=== PATIENT | male | born 1945 | race Caucasian/White ===

== ENCOUNTER → 2018-02-11 | Outpatient (CLI) | payer OTHER ==
[~2018-02-11] MED LIST: ALLO300T PO; BISA10SU65 PR; DICL100G19 TP; DIGO250T PO; DILT120C9 PO; DILT180C72 PO; DILT180C9 PO; FERR324T5 PO; FOLI-17 PO; HYDR-3245 PO; LEVO88TA4 PO; LOVA20TA2 PO; METH2.5T PO; METO25TA35 PO; METO50TA82 PO; MORP-52 PO; MORP60TA PO; NAPR-685 PO; NAPR250T6 PO; ONDA4TAB13 PO; OXYC10TA6 PO; OXYC5TAB3 PO; PANT40TA5 PO; PRED5TAB19 PO; SENN1TAB8 PO; SUCR1ORA5 PO; VIAGRA PO; WARF1TAB74 PO-COUM; WARF4TAB65 PO; WARF6TAB47 PO; ZOLP10TA5 PO
== END | disposition home or self-care (01) ==
LOC: CFH 14:38
PROVIDERS: ATTEND Internal Medicine Cardiovascular Disease
DX: I34.0 Nonrheumatic mitral (valve) insufficiency (principal); I37.1 Nonrheumatic pulmonary valve insufficiency; I10 Essential (primary) hypertension; E78.5 Hyperlipidemia, unspecified; I48.2 Chronic atrial fibrillation
CPT/HCPCS: 93306

== ENCOUNTER 2019-05-08 16:48 | Emergency (ER) | payer SELFPAY ==
[~2019-05-08] VITALS: Ht 193 cm; Wt 93.0 kg
[~2019-05-08 16:48] MED LIST changes: +DILT120C48 PO; -DILT120C9 PO; -MORP60TA PO; +MORP60TA63 PO; +SENN-177 PO; -SENN1TAB8 PO
[2019-05-08 17:43] VITALS: BP 124/90
[2019-05-08 18:15] LABS: BASOPHILS # (AUTO) 0.05 x10^3/uL (0-0.1); BASOPHILS % (AUTO) 1 % (0-1); EOSINOPHILS # (AUTO) 0.14 x10^3/uL (0-0.4); EOSINOPHILS % (AUTO) 2 % (1-7); LYMPHOCYTES # (AUTO) 1.52 x10^3/uL (1-3.4); LYMPHOCYTES % (AUTO) 20 % (22-44); MD NO; MEAN CORPUSCULAR HEMOGLOBIN 32.4 pg (27.5-34.5); MEAN CORPUSCULAR HGB CONC 32.4 g/dL (33.2-36.2); MEAN CORPUSCULAR VOLUME 100.2 fL (81-97); MEAN PLATELET VOLUME 6.8 fL (7.4-10.4); MONOCYTES % (AUTO) 16 % (2-9); NEUTROPHILS # (AUTO) 4.55 x10^3/uL (1.8-6.8); NEUTROPHILS % (AUTO) 61 % (42-75); PLATELET COUNT 266 x10^3/uL (130-400); RED BLOOD COUNT 3.63 x10^6/uL (4.38-5.82); RED CELL DISTRIBUTION WIDTH 16.7 % (9.4-14.8)
[2019-05-08 18:23] LABS: ALBUMIN 2.5 g/dL (3.4-5.0); ANION GAP 7 mmol/L (5-15); CHLORIDE 101 mmol/L (98-107)
[2019-05-08 18:28] LABS: ALANINE AMINOTRANSFERASE 12 U/L (12-78); ALKALINE PHOSPHATASE 134 U/L (45-117); BILIRUBIN,TOTAL 0.5 mg/dL (0.2-1.0); CREATININE 1.28 mg/dL (0.7-1.3); TOTAL PROTEIN 7.5 g/dL (6.4-8.2)
--- NOTE | 2019-05-08 20:45 | NUR ---
TASK RN: DC EDUCATION PROVIDED, PT DEMONSTRATES UNDERSTANDING. PT WHEELED TO DC WITH FRIEND/FAMILY
== END 2019-05-08 20:47 | disposition home or self-care (01) ==
LOC: ED 18:00
DX: M79.603 Pain in arm, unspecified (principal); M79.89 Other specified soft tissue disorders; I25.10 Atherosclerotic heart disease of native coronary artery without angina pectoris; I11.0 Hypertensive heart disease with heart failure; I50.9 Heart failure, unspecified; I25.2 Old myocardial infarction; I48.91 Unspecified atrial fibrillation; E78.5 Hyperlipidemia, unspecified; Z87.891 Personal history of nicotine dependence
CPT/HCPCS: 36415; 80053; 85025; 99283

== ENCOUNTER 2020-06-30 08:53 | Inpatient (IN) | payer MEDICARE ==
[~2020-06-30] VITALS: Ht 190.5 cm; Wt 73.8 kg
[~2020-06-30 08:53] MED LIST changes: +ATOR20TA86 PO; -DIGO250T PO; +DIGO250T3 PO; +DILT-86 PO; -DILT180C9 PO; -FOLI-17 PO; +FOLI1TAB32 PO; +FURO40TA6 PO; -HYDR-3245 PO; +HYDR1TAB53 PO; +LEFL20TA16 PO; +LEVO88TA2 PO; +NAPR-872 PO; -NAPR250T6 PO; -OXYC5TAB3 PO; +OXYC5TAB98 PO; +PANT20TA4 PO; -PANT40TA5 PO; +PANT40TA6 PO; +POTA10CA PO; +RIVA20TA PO; +SUCR1TAB PO
--- NOTE | 2020-06-30 09:09 | NUR ---
PT BIB [facility]. PER REPORT, PT HAD SYNCOPAL EVENT AND FELL AND HIT HEAD. PT STAED THAT HE HAD LOC, BUT UNKNOWN DOWN TIME. PT AWAKE, BUT DROWSY. PT STATES HE HAS SOME NECK PAIN. PT STATES THAT HE HAS A HISTORY GIB AND ANEMIA AND HAS BEEN FEELING DIZZY SINCE THEN. PT DENIES ANY BLOODY/BLACK STOOL.
--- NOTE | 2020-06-30 09:23 | NUR ---
PT TO CT
[2020-06-30] MEDS ORDERED: SODIUM CHLORIDE FLUSH 10ML SYR IVF ONE (09:30)
[2020-06-30 09:56] LABS: MEAN CORPUSCULAR HGB CONC 32.7 g/dL (33.2-36.2); MEAN PLATELET VOLUME 7.5 fL (7.4-10.4); PLATELET COUNT 179 x10^3/uL (130-400); RED BLOOD COUNT 2.99 x10^6/uL (4.38-5.82); RED CELL DISTRIBUTION WIDTH 23.1 % (9.4-14.8)
[2020-06-30 10:02] LABS: INTERNATIONAL NORMALIZED RATIO 1.32 (0.93-1.1)
[2020-06-30 10:03] LABS: ALANINE AMINOTRANSFERASE 36 U/L (12-78); ALBUMIN 2.3 g/dL (3.4-5.0); ANION GAP 5 mmol/L (5-15); CALCIUM 8.2 mg/dL (8.5-10.1); CHLORIDE 102 mmol/L (98-107); CREATININE 0.77 mg/dL (0.7-1.3)
[2020-06-30 10:05] LABS: ALKALINE PHOSPHATASE 511 U/L (45-117); BILIRUBIN,TOTAL 2.3 mg/dL (0.2-1.0); TOTAL PROTEIN 6.1 g/dL (6.4-8.2)
[2020-06-30 10:19] LABS: MD YES
[2020-06-30 10:21] LABS: EOS#(MANUAL) 0.08 x10^3/uL (0.0-0.4); EOS% (MANUAL) 1 % (1-7); LYMPH#(MANUAL) 0.83 x10^3/uL (1-3.4); LYMPHS% (MANUAL) 10 % (22-44); MONOS#(MANUAL) 1.33 x10^3/uL (0.3-2.7); MONOS% (MANUAL) 16 % (2-9); SEG#(MANUAL) 6.06 x10^3/uL (1.8-6.8); SEGS% (MANUAL) 73 % (42-75)
[2020-06-30 10:22] LABS: ANISOCYTOSIS 1+; HYPOCHROMIA 1+; OVALOCYTES 1+
[2020-06-30 10:23] LABS: <PLATELET ESTIMATE> ADEQUATE; <PLT MORPHOLOGY> NORMAL PLT MORPH; POLYCHROMASIA 1+; TARGET CELLS 1+; TEAR DROPS 1+
[2020-06-30 10:26] LABS: MICROSCOPIC INDICATED
[2020-06-30] MEDS ORDERED: POTASSIUM CHLORIDE 40 MEQ in SODIUM CHLORIDE 0.9% 500 ML IV ONE (11:00)
--- NOTE | 2020-06-30 11:10 | NUR ---
PACER INTERROGATION COMPLETE
--- NOTE | 2020-06-30 11:26 | NUR ---
REPORT GIVEN TO SANJANA GASTON
[2020-06-30] MEDS ORDERED: DIGOXIN 0.25 MG TABLET PO SCH (11:30)
[2020-06-30] MEDS ORDERED: ONDANSETRON 2MG/ML, 2ML IV PRN (11:30)
[2020-06-30] MEDS ORDERED: POTASSIUM CHLORIDE 20 MEQ TAB.ER.PRT PO ONE (11:30)
[2020-06-30 13:00] VITALS: BP 93/52
[2020-06-30] MEDS: METOPROLOL TARTRATE 50 MG TAB PO SCH ×2 (13:06→18:00)
[2020-06-30] MEDS: LEFLUNOMIDE 20 MG TABLET PO SCH (13:07)
[2020-06-30] MEDS: RIVAROXABAN 20 MG TABLET PO SCH (13:07)
[2020-06-30] MEDS: HYDROcodone/APAP 10/325 MG TABLET PO PRN ×2 (13:09→22:11)
[2020-06-30] MEDS: SUCRALFATE 1 GM TABLET PO SCH ×2 (13:09→18:43)
[2020-06-30 14:24] LABS: ANION GAP 5 mmol/L (5-15); CALCIUM 8.2 mg/dL (8.5-10.1); CHLORIDE 103 mmol/L (98-107); CREATININE 0.71 mg/dL (0.7-1.3)
[2020-06-30] MEDS ORDERED: POTASSIUM CHLORIDE 20 MEQ TAB.ER.PRT ONE (16:27)
[2020-06-30] MEDS: [UNRECOGNIZED DRUG - OTHER] IV SCH (16:30)
[2020-06-30] MEDS: THIAMINE IV SCH (16:30)
[2020-06-30] MEDS: FOLIC ACID IV SCH (16:30)
[2020-06-30] MEDS: MAG SULFATE IV SCH (16:30)
[2020-06-30] MEDS: POTASSIUM CHLORIDE IV SCH (16:30)
[2020-06-30 19:17] VITALS: BP 122/69
[2020-06-30] MEDS: POTASSIUM CHLORIDE 20 MEQ TAB.ER.PRT PO SCH (19:35)
[2020-06-30 19:40] LABS: ANION GAP 3 mmol/L (5-15); CALCIUM 7.8 mg/dL (8.5-10.1); CHLORIDE 107 mmol/L (98-107); CREATININE 0.63 mg/dL (0.7-1.3)
[2020-06-30] MEDS: ATORVASTATIN 20 MG TABLET PO SCH (22:11)
[2020-06-30] MEDS: ALLOPURINOL 300 MG TABLET PO SCH (22:12)
[2020-07-01 00:15] VITALS: BP 129/67
[2020-07-01 02:38] LABS: ANION GAP 2 mmol/L (5-15); CALCIUM 7.8 mg/dL (8.5-10.1); CHLORIDE 109 mmol/L (98-107); CREATININE 0.59 mg/dL (0.7-1.3)
[2020-07-01 05:30] LABS: CHLORIDE 109 mmol/L (98-107); CREATININE 0.57 mg/dL (0.7-1.3)
[2020-07-01] MEDS: LEVOTHYROXINE 88 MCG TABLET PO SCH (05:36)
[2020-07-01] MEDS: METOPROLOL TARTRATE 50 MG TAB PO SCH ×2 (05:36→17:12)
[2020-07-01 05:38] LABS: ANION GAP 2 mmol/L (5-15)
[2020-07-01 06:55] VITALS: BP 128/58
[2020-07-01] MEDS: POTASSIUM CHLORIDE 20 MEQ TAB.ER.PRT PO SCH (07:47)
[2020-07-01] MEDS: ALLOPURINOL 300 MG TABLET PO SCH (07:47)
[2020-07-01] MEDS: SUCRALFATE 1 GM TABLET PO SCH ×2 (07:47→17:12)
[2020-07-01] MEDS: LEFLUNOMIDE 20 MG TABLET PO SCH (07:47)
[2020-07-01] MEDS: RIVAROXABAN 20 MG TABLET PO SCH (07:47)
[2020-07-01] MEDS: FOLIC ACID IV SCH (10:06)
[2020-07-01] MEDS: MAG SULFATE IV SCH (10:06)
[2020-07-01] MEDS: [UNRECOGNIZED DRUG - OTHER] IV SCH (10:06)
[2020-07-01] MEDS: DIGOXIN 0.25 MG TABLET PO SCH (10:06)
[2020-07-01] MEDS: POTASSIUM CHLORIDE IV SCH (10:06)
[2020-07-01] MEDS: THIAMINE IV SCH (10:06)
[2020-07-01] MEDS: HYDROcodone/APAP 10/325 MG TABLET PO PRN ×2 (10:10→17:51)
[2020-07-01 12:10] VITALS: BP 128/53
[2020-07-01 17:40] LABS: TROPONIN I 0.052 ng/mL (0.000-0.045)
[2020-07-01 18:15] VITALS: BP 133/67
[2020-07-01] MEDS: ATORVASTATIN 20 MG TABLET PO SCH (19:58)
[2020-07-02] VITALS: BP 133/62
[2020-07-02 05:44] LABS: BASOPHILS % (AUTO) 1 % (0-1); EOSINOPHILS % (AUTO) 4 % (1-7); LYMPHOCYTES % (AUTO) 17 % (22-44); MEAN CORPUSCULAR HGB CONC 32.6 g/dL (33.2-36.2); MONOCYTES % (AUTO) 17 % (2-9); NEUTROPHILS % (AUTO) 62 % (42-75); PLATELET COUNT 162 x10^3/uL (130-400); RED BLOOD COUNT 2.75 x10^6/uL (4.38-5.82); RED CELL DISTRIBUTION WIDTH 23.8 % (9.4-14.8)
[2020-07-02 05:53] LABS: CHLORIDE 108 mmol/L (98-107)
[2020-07-02] MEDS: LEVOTHYROXINE 88 MCG TABLET PO SCH (05:55)
[2020-07-02] MEDS: METOPROLOL TARTRATE 50 MG TAB PO SCH ×2 (05:55→17:36)
[2020-07-02 06:07] LABS: ALANINE AMINOTRANSFERASE 33 U/L (12-78); ALBUMIN 2.1 g/dL (3.4-5.0); ALKALINE PHOSPHATASE 522 U/L (45-117); ANION GAP 2 mmol/L (5-15); BILIRUBIN,TOTAL 2.2 mg/dL (0.2-1.0); CALCIUM 8.5 mg/dL (8.5-10.1); CREATININE 0.59 mg/dL (0.7-1.3); TOTAL PROTEIN 5.5 g/dL (6.4-8.2)
[2020-07-02 06:15] LABS: MD SCAN
[2020-07-02] MEDS: HYDROcodone/APAP 10/325 MG TABLET PO PRN ×3 (06:31→23:40)
[2020-07-02 06:33] VITALS: BP 144/56
[2020-07-02] MEDS: SUCRALFATE 1 GM TABLET PO SCH ×2 (07:30→15:39)
[2020-07-02 08:19] LABS: TROPONIN I 0.048 ng/mL (0.000-0.045)
[2020-07-02] MEDS ORDERED: REGADENOSON 0.4 MG/5 ML SYRINGE ONE (08:22)
[2020-07-02 14:05] VITALS: BP 145/60
[2020-07-02] MEDS: MULTIVITAMIN 1 TABLET PO SCH (15:39)
[2020-07-02] MEDS: RIVAROXABAN 20 MG TABLET PO SCH (15:39)
[2020-07-02] MEDS: ALLOPURINOL 300 MG TABLET PO SCH (15:39)
[2020-07-02] MEDS: DIGOXIN 0.25 MG TABLET PO SCH (15:39)
[2020-07-02] MEDS: POTASSIUM CHLORIDE 20 MEQ TAB.ER.PRT PO SCH (15:40)
[2020-07-02] MEDS: FOLIC ACID 1 MG TABLET PO SCH (15:41)
[2020-07-02] MEDS: LEFLUNOMIDE 20 MG TABLET PO SCH (15:51)
[2020-07-02 19:09] VITALS: BP 133/60
[2020-07-02] MEDS: ACETAMINOPHEN 325 MG TABLET PO PRN (21:22)
[2020-07-02] MEDS: ATORVASTATIN 20 MG TABLET PO SCH (21:22)
[2020-07-03 00:49] VITALS: BP 128/62
[2020-07-03] MEDS: METOPROLOL TARTRATE 50 MG TAB PO SCH ×2 (05:18→18:00)
[2020-07-03] MEDS: LEVOTHYROXINE 88 MCG TABLET PO SCH (05:18)
[2020-07-03 07:08] VITALS: BP 134/62
[2020-07-03] MEDS: DIGOXIN 0.25 MG TABLET PO SCH (08:01)
[2020-07-03] MEDS: ALLOPURINOL 300 MG TABLET PO SCH (08:01)
[2020-07-03] MEDS: FOLIC ACID 1 MG TABLET PO SCH (08:01)
[2020-07-03] MEDS: POTASSIUM CHLORIDE 20 MEQ TAB.ER.PRT PO SCH (08:02)
[2020-07-03] MEDS: RIVAROXABAN 20 MG TABLET PO SCH (08:02)
[2020-07-03] MEDS: MULTIVITAMIN 1 TABLET PO SCH (08:02)
[2020-07-03] MEDS: HYDROcodone/APAP 10/325 MG TABLET PO PRN ×3 (08:02→20:36)
[2020-07-03] MEDS: SUCRALFATE 1 GM TABLET PO SCH ×2 (08:12→16:19)
[2020-07-03] MEDS: LEFLUNOMIDE 20 MG TABLET PO SCH (08:13)
[2020-07-03 11:03] VITALS: BP 145/70
[2020-07-03 11:04] VITALS: BP_SYST 127; BP_SYST 141; BP_DIAS 64; BP_DIAS 67
[2020-07-03 13:22] VITALS: BP 155/70
[2020-07-03 16:09] LABS: ALANINE AMINOTRANSFERASE 54 U/L (12-78); ALBUMIN 2.2 g/dL (3.4-5.0); ANION GAP 3 mmol/L (5-15); CALCIUM 8.6 mg/dL (8.5-10.1); CHLORIDE 110 mmol/L (98-107); CREATININE 0.65 mg/dL (0.7-1.3)
[2020-07-03 16:11] LABS: ALKALINE PHOSPHATASE 868 U/L (45-117); BILIRUBIN,TOTAL 3.6 mg/dL (0.2-1.0); TOTAL PROTEIN 5.9 g/dL (6.4-8.2)
[2020-07-03 18:48] VITALS: BP 137/73
[2020-07-03] MEDS: ATORVASTATIN 20 MG TABLET PO SCH (20:35)
[2020-07-04 01:30] VITALS: BP 133/69
[2020-07-04] MEDS: LEVOTHYROXINE 75 MCG TABLET PO SCH (05:35)
[2020-07-04] MEDS: METOPROLOL TARTRATE 50 MG TAB PO SCH ×2 (05:36→18:07)
[2020-07-04] MEDS: HYDROcodone/APAP 10/325 MG TABLET PO PRN ×3 (05:36→21:38)
[2020-07-04 06:08] LABS: ALANINE AMINOTRANSFERASE 75 U/L (12-78); ALBUMIN 2.2 g/dL (3.4-5.0); ANION GAP 4 mmol/L (5-15); CALCIUM 8.8 mg/dL (8.5-10.1); CHLORIDE 110 mmol/L (98-107); CREATININE 0.53 mg/dL (0.7-1.3)
[2020-07-04 06:10] LABS: ALKALINE PHOSPHATASE 975 U/L (45-117); BILIRUBIN,TOTAL 3.7 mg/dL (0.2-1.0); TOTAL PROTEIN 5.9 g/dL (6.4-8.2)
[2020-07-04 07:02] VITALS: BP 132/69
[2020-07-04] MEDS: FOLIC ACID 1 MG TABLET PO SCH (09:15)
[2020-07-04] MEDS: RIVAROXABAN 20 MG TABLET PO SCH (09:15)
[2020-07-04] MEDS: MULTIVITAMIN 1 TABLET PO SCH (09:15)
[2020-07-04] MEDS: DIGOXIN 0.25 MG TABLET PO SCH (09:15)
[2020-07-04] MEDS: ALLOPURINOL 300 MG TABLET PO SCH (09:16)
[2020-07-04] MEDS: POTASSIUM CHLORIDE 20 MEQ TAB.ER.PRT PO SCH (09:21)
[2020-07-04] MEDS: LEFLUNOMIDE 20 MG TABLET PO SCH (09:21)
[2020-07-04] MEDS: SUCRALFATE 1 GM TABLET PO SCH ×2 (09:22→16:39)
[2020-07-04] MEDS: PANTOPRAZOLE 40MG TABLET PO SCH (11:47)
[2020-07-04 12:07] VITALS: BP 129/62
[2020-07-04 18:03] VITALS: BP 115/61
[2020-07-04] MEDS: ACETAMINOPHEN 325 MG TABLET PO PRN (18:13)
[2020-07-04 19:13] VITALS: BP 119/64
[2020-07-04] MEDS: ATORVASTATIN 20 MG TABLET PO SCH (21:38)
[2020-07-05 00:38] VITALS: BP 125/69
[2020-07-05 05:10] LABS: BASOPHILS % (AUTO) 1 % (0-1); EOSINOPHILS % (AUTO) 4 % (1-7); LYMPHOCYTES % (AUTO) 20 % (22-44); MEAN CORPUSCULAR HEMOGLOBIN 28.3 pg (27.5-34.5); MEAN PLATELET VOLUME 8.2 fL (7.4-10.4); MONOCYTES % (AUTO) 13 % (2-9); NEUTROPHILS % (AUTO) 62 % (42-75); PLATELET COUNT 173 x10^3/uL (130-400); RED BLOOD COUNT 2.92 x10^6/uL (4.38-5.82); RED CELL DISTRIBUTION WIDTH 24.6 % (9.4-14.8)
[2020-07-05 05:19] LABS: CHLORIDE 110 mmol/L (98-107)
[2020-07-05 05:40] LABS: ALANINE AMINOTRANSFERASE 86 U/L (12-78); ALBUMIN 2.3 g/dL (3.4-5.0); ALKALINE PHOSPHATASE 986 U/L (45-117); ANION GAP 3 mmol/L (5-15); BILIRUBIN,TOTAL 4.3 mg/dL (0.2-1.0); CALCIUM 9.1 mg/dL (8.5-10.1); CREATININE 0.57 mg/dL (0.7-1.3); TOTAL PROTEIN 6.1 g/dL (6.4-8.2)
[2020-07-05 06:07] LABS: <PLATELET ESTIMATE> ADEQUATE; <PLT MORPHOLOGY> NORMAL PLT MORPH; ANISOCYTOSIS 1+; MD MORPH REVIEW ONLY; OVALOCYTES 1+; POLYCHROMASIA 1+
[2020-07-05 06:08] LABS: ECHINOCYTES 1+; MICROCYTOSIS 1+
[2020-07-05 06:09] LABS: ACANTHOCYTES 1+; SCHISTOCYTES 1+
[2020-07-05 06:10] LABS: TARGET CELLS 1+
[2020-07-05 06:11] LABS: HYPOCHROMIA 2+
[2020-07-05] MEDS: PANTOPRAZOLE 40MG TABLET PO SCH (06:14)
[2020-07-05] MEDS: METOPROLOL TARTRATE 50 MG TAB PO SCH ×2 (06:14→17:45)
[2020-07-05] MEDS: LEVOTHYROXINE 75 MCG TABLET PO SCH (06:14)
[2020-07-05 06:15] LABS: TEAR DROPS 1+
[2020-07-05 07:31] VITALS: BP 115/66
[2020-07-05] MEDS: ALLOPURINOL 300 MG TABLET PO SCH (09:59)
[2020-07-05] MEDS: DIGOXIN 0.25 MG TABLET PO SCH (09:59)
[2020-07-05] MEDS: HYDROcodone/APAP 10/325 MG TABLET PO PRN ×2 (10:00→16:15)
[2020-07-05] MEDS: MULTIVITAMIN 1 TABLET PO SCH (10:00)
[2020-07-05] MEDS: LEFLUNOMIDE 20 MG TABLET PO SCH (10:00)
[2020-07-05] MEDS: FOLIC ACID 1 MG TABLET PO SCH (10:00)
[2020-07-05] MEDS: POTASSIUM CHLORIDE 20 MEQ TAB.ER.PRT PO SCH (10:00)
[2020-07-05] MEDS: SUCRALFATE 1 GM TABLET PO SCH ×2 (10:02→16:15)
[2020-07-05 12:08] VITALS: BP 104/55
[2020-07-05 17:43] VITALS: BP 129/58
[2020-07-05] MEDS: CEFTRIAXONE PMX 2GM/50ML 50 ML IVPB SCH (17:43)
[2020-07-05] MEDS: METRONIDAZOLE PMX 500MG/100ML 100 ML IV SCH (18:27)
[2020-07-05 19:20] VITALS: BP 124/60
[2020-07-05] MEDS: OXYcodone IR 5MG TABLET PO PRN (21:10)
[2020-07-05] MEDS: ATORVASTATIN 20 MG TABLET PO SCH (21:10)
[2020-07-06] MEDS: OXYcodone IR 5MG TABLET PO PRN ×6 (00:53→21:50)
[2020-07-06] MEDS: METRONIDAZOLE PMX 500MG/100ML 100 ML IV SCH ×3 (00:54→16:35)
[2020-07-06 01:11] VITALS: BP 131/68
[2020-07-06] MEDS: PANTOPRAZOLE 40MG TABLET PO SCH (05:13)
[2020-07-06] MEDS: LEVOTHYROXINE 75 MCG TABLET PO SCH (05:13)
[2020-07-06] MEDS: METOPROLOL TARTRATE 50 MG TAB PO SCH ×2 (05:13→17:56)
[2020-07-06 06:34] VITALS: BP 125/69
[2020-07-06 08:51] LABS: ALANINE AMINOTRANSFERASE 86 U/L (12-78); ALBUMIN 2.1 g/dL (3.4-5.0); ANION GAP 3 mmol/L (5-15); CHLORIDE 110 mmol/L (98-107)
[2020-07-06] MEDS: LEFLUNOMIDE 20 MG TABLET PO SCH (09:00)
[2020-07-06] MEDS: FOLIC ACID 1 MG TABLET PO SCH (09:00)
[2020-07-06] MEDS: POTASSIUM CHLORIDE 20 MEQ TAB.ER.PRT PO SCH (09:00)
[2020-07-06] MEDS: MULTIVITAMIN 1 TABLET PO SCH (09:00)
[2020-07-06] MEDS: SUCRALFATE 1 GM TABLET PO SCH ×2 (09:00→16:40)
[2020-07-06] MEDS: DIGOXIN 0.25 MG TABLET PO SCH (09:01)
[2020-07-06] MEDS: ALLOPURINOL 300 MG TABLET PO SCH (09:02)
[2020-07-06 09:06] LABS: ALKALINE PHOSPHATASE 919 U/L (45-117); BILIRUBIN,TOTAL 4.4 mg/dL (0.2-1.0); CREATININE 0.61 mg/dL (0.7-1.3); TOTAL PROTEIN 5.6 g/dL (6.4-8.2)
[2020-07-06 12:26] VITALS: BP 121/64
[2020-07-06] MEDS: CEFTRIAXONE PMX 2GM/50ML 50 ML IVPB SCH (17:53)
[2020-07-06 17:57] VITALS: BP 119/57
[2020-07-06 19:27] VITALS: BP 115/51
[2020-07-06] MEDS: ATORVASTATIN 20 MG TABLET PO SCH (20:59)
[2020-07-07 00:03] VITALS: BP 124/58
[2020-07-07] MEDS: METRONIDAZOLE PMX 500MG/100ML 100 ML IV SCH ×3 (01:37→17:17)
[2020-07-07] MEDS: OXYcodone IR 5MG TABLET PO PRN ×6 (01:38→23:18)
[2020-07-07 04:45] LABS: BASOPHILS % (AUTO) 1 % (0-1); EOSINOPHILS % (AUTO) 4 % (1-7); LYMPHOCYTES % (AUTO) 17 % (22-44); MEAN CORPUSCULAR HEMOGLOBIN 28.4 pg (27.5-34.5); MEAN PLATELET VOLUME 8.1 fL (7.4-10.4); MONOCYTES % (AUTO) 18 % (2-9); NEUTROPHILS % (AUTO) 60 % (42-75); PLATELET COUNT 182 x10^3/uL (130-400); RED BLOOD COUNT 2.79 x10^6/uL (4.38-5.82); RED CELL DISTRIBUTION WIDTH 24.6 % (9.4-14.8)
[2020-07-07 04:58] LABS: ALBUMIN 2.2 g/dL (3.4-5.0); ANION GAP 3 mmol/L (5-15); CALCIUM 8.5 mg/dL (8.5-10.1); CHLORIDE 109 mmol/L (98-107)
[2020-07-07 05:02] LABS: ALANINE AMINOTRANSFERASE 87 U/L (12-78); ALKALINE PHOSPHATASE 972 U/L (45-117); BILIRUBIN,TOTAL 4.7 mg/dL (0.2-1.0); CREATININE 0.58 mg/dL (0.7-1.3); TOTAL PROTEIN 5.7 g/dL (6.4-8.2)
[2020-07-07 05:07] LABS: MD MORPH REVIEW ONLY
[2020-07-07 05:08] LABS: ANISOCYTOSIS 1+; MICROCYTOSIS 1+
[2020-07-07 05:09] LABS: HYPOCHROMIA 1+; OVALOCYTES 1+; POLYCHROMASIA 1+
[2020-07-07 05:10] LABS: <PLATELET ESTIMATE> ADEQUATE; <PLT MORPHOLOGY> NORMAL PLT MORPH; SCHISTOCYTES 1+; TARGET CELLS 1+; TEAR DROPS 1+
[2020-07-07] MEDS: PANTOPRAZOLE 40MG TABLET PO SCH (05:56)
[2020-07-07] MEDS: LEVOTHYROXINE 75 MCG TABLET PO SCH (05:56)
[2020-07-07] MEDS: METOPROLOL TARTRATE 50 MG TAB PO SCH ×2 (05:56→17:17)
[2020-07-07 06:51] VITALS: BP 115/66
[2020-07-07] MEDS: POTASSIUM CHLORIDE 20 MEQ TAB.ER.PRT PO SCH (09:07)
[2020-07-07] MEDS: ACETAMINOPHEN 325 MG TABLET PO PRN (09:07)
[2020-07-07] MEDS: SUCRALFATE 1 GM TABLET PO SCH ×2 (09:08→16:37)
[2020-07-07] MEDS: MULTIVITAMIN 1 TABLET PO SCH (09:08)
[2020-07-07] MEDS: FOLIC ACID 1 MG TABLET PO SCH (09:08)
[2020-07-07] MEDS: ALLOPURINOL 300 MG TABLET PO SCH (09:08)
[2020-07-07] MEDS: DIGOXIN 0.25 MG TABLET PO SCH (09:08)
[2020-07-07] MEDS: LEFLUNOMIDE 20 MG TABLET PO SCH (09:13)
[2020-07-07 12:16] VITALS: BP 121/68
[2020-07-07] MEDS: CEFTRIAXONE PMX 2GM/50ML 50 ML IVPB SCH (16:37)
[2020-07-07 18:51] VITALS: BP 115/67
[2020-07-07] MEDS: ATORVASTATIN 20 MG TABLET PO SCH (19:49)
[2020-07-08 00:20] VITALS: BP 129/66
[2020-07-08] MEDS: METRONIDAZOLE PMX 500MG/100ML 100 ML IV SCH ×2 (01:00→09:47)
[2020-07-08] MEDS: OXYcodone IR 5MG TABLET PO PRN ×4 (04:12→23:18)
[2020-07-08 05:35] LABS: INTERNATIONAL NORMALIZED RATIO 1.32 (0.93-1.1)
[2020-07-08] MEDS: PANTOPRAZOLE 40MG TABLET PO SCH (06:13)
[2020-07-08] MEDS: METOPROLOL TARTRATE 50 MG TAB PO SCH ×2 (06:13→17:03)
[2020-07-08] MEDS: LEVOTHYROXINE 75 MCG TABLET PO SCH (06:14)
[2020-07-08 06:45] VITALS: BP 120/70
[2020-07-08] MEDS: DIGOXIN 0.25 MG TABLET PO SCH (09:47)
[2020-07-08] MEDS: FOLIC ACID 1 MG TABLET PO SCH (09:47)
[2020-07-08] MEDS: MULTIVITAMIN 1 TABLET PO SCH (09:47)
[2020-07-08] MEDS: ALLOPURINOL 300 MG TABLET PO SCH (09:47)
[2020-07-08] MEDS: POTASSIUM CHLORIDE 20 MEQ TAB.ER.PRT PO SCH (09:48)
[2020-07-08] MEDS: LEFLUNOMIDE 20 MG TABLET PO SCH (09:48)
[2020-07-08] MEDS: SUCRALFATE 1 GM TABLET PO SCH ×2 (09:50→17:03)
[2020-07-08 12:22] VITALS: BP 123/68
[2020-07-08] MEDS ORDERED: FENTANYL PF 250 MCG/5ML ONE (13:26)
[2020-07-08] MEDS ORDERED: PROPOFOL 50 ML ONE (13:27)
[2020-07-08] MEDS ORDERED: SUCCINYLCHOLINE 20 MG/ML, 10ML ONE (13:45)
[2020-07-08] MEDS ORDERED: ONDANSETRON 2MG/ML, 2ML ONE (13:45)
[2020-07-08] MEDS ORDERED: ROCURONIUM 10 MG/ML,10ML ONE (13:45)
[2020-07-08] MEDS ORDERED: OMNIPAQUE 350 MG/ML, 50 ML BOTTLE ONE (13:53)
[2020-07-08] MEDS ORDERED: LABETALOL 5MG/ML, 20ML IV PRN (14:00)
[2020-07-08] MEDS ORDERED: ONDANSETRON 2MG/ML, 2ML IVPush PRN (14:00)
[2020-07-08] MEDS ORDERED: EPHEDRINE 50 MG/ML, 1ML IVPush PRN (14:00)
[2020-07-08] MEDS ORDERED: PROMETHAZINE 25 MG/ML, 1ML IVPush PRN (14:00)
[2020-07-08] MEDS ORDERED: FENTANYL PF 100 MCG/2ML IV PRN (14:00)
[2020-07-08] MEDS ORDERED: DIAZEPAM 5 MG/ML, 2ML IVPush PRN (14:00)
[2020-07-08] MEDS ORDERED: EPHEDRINE 50 MG/ML, 1ML IM PRN (14:00)
[2020-07-08] MEDS ORDERED: DIPHENHYDRAMINE 50 MG/ML, 1ML IVPush PRN (14:00)
[2020-07-08] MEDS: metroNIDAZOLE 500 MG TABLET PO SCH ×2 (17:03→20:44)
[2020-07-08] MEDS: CEFTRIAXONE PMX 2GM/50ML 50 ML IVPB SCH (17:03)
[2020-07-08 20:07] VITALS: BP 116/61
[2020-07-08] MEDS: ATORVASTATIN 20 MG TABLET PO SCH (20:44)
[2020-07-09 00:07] VITALS: BP 115/67
[2020-07-09 04:52] VITALS: BP 121/59
[2020-07-09] MEDS: PANTOPRAZOLE 40MG TABLET PO SCH (04:54)
[2020-07-09] MEDS: METOPROLOL TARTRATE 50 MG TAB PO SCH (04:54)
[2020-07-09] MEDS: LEVOTHYROXINE 75 MCG TABLET PO SCH (04:54)
[2020-07-09] MEDS: OXYcodone IR 5MG TABLET PO PRN ×3 (05:01→15:13)
[2020-07-09 05:43] LABS: BASOPHILS % (AUTO) 1 % (0-1); EOSINOPHILS % (AUTO) 3 % (1-7); LYMPHOCYTES % (AUTO) 17 % (22-44); MEAN CORPUSCULAR HEMOGLOBIN 28.3 pg (27.5-34.5); MEAN CORPUSCULAR HGB CONC 32.8 g/dL (33.2-36.2); MEAN PLATELET VOLUME 8.1 fL (7.4-10.4); MONOCYTES % (AUTO) 20 % (2-9); NEUTROPHILS % (AUTO) 59 % (42-75); PLATELET COUNT 200 x10^3/uL (130-400); RED BLOOD COUNT 2.71 x10^6/uL (4.38-5.82); RED CELL DISTRIBUTION WIDTH 25.3 % (9.4-14.8)
[2020-07-09 05:58] LABS: CHLORIDE 108 mmol/L (98-107)
[2020-07-09 06:06] LABS: ALANINE AMINOTRANSFERASE 99 U/L (12-78); ALBUMIN 2.1 g/dL (3.4-5.0); ALKALINE PHOSPHATASE 964 U/L (45-117); ANION GAP 3 mmol/L (5-15); BILIRUBIN,TOTAL 3.2 mg/dL (0.2-1.0); CALCIUM 8.3 mg/dL (8.5-10.1); CREATININE 0.65 mg/dL (0.7-1.3); TOTAL PROTEIN 5.6 g/dL (6.4-8.2)
[2020-07-09 06:14] LABS: MD SCAN
[2020-07-09 07:28] VITALS: BP 112/57
[2020-07-09] MEDS: SUCRALFATE 1 GM TABLET PO SCH (07:30)
[2020-07-09] MEDS: metroNIDAZOLE 500 MG TABLET PO SCH (08:22)
[2020-07-09] MEDS: FOLIC ACID 1 MG TABLET PO SCH (08:22)
[2020-07-09] MEDS: LEFLUNOMIDE 20 MG TABLET PO SCH (08:22)
[2020-07-09] MEDS: MULTIVITAMIN 1 TABLET PO SCH (08:22)
[2020-07-09] MEDS: POTASSIUM CHLORIDE 20 MEQ TAB.ER.PRT PO SCH (08:22)
[2020-07-09] MEDS: ALLOPURINOL 300 MG TABLET PO SCH (08:22)
[2020-07-09] MEDS: DIGOXIN 0.25 MG TABLET PO SCH (08:23)
[2020-07-09] MEDS ORDERED: OXYC5TAB98 PO (11:23)
[2020-07-09] MEDS ORDERED: LEVO75TA PO (11:23)
[2020-07-09] MEDS ORDERED: POTA20TA6 PO (11:23)
[2020-07-09 13:44] VITALS: BP 130/68
[2020-07-09] MEDS ORDERED: CEFT2FRO2 IV (14:15)
[2020-07-09] MEDS ORDERED: METR500T PO (14:15)
== END 2020-07-09 16:00 | DRG 435 ==
LOC: ED 09:35 → EDIP 11:01 → SUATTDRO 11:06 → 4WST 11:40
PROVIDERS: ADMIT Internal Medicine; ATTEND Family Medicine
PROC: 0DB98ZX Excision of Duodenum, Via Natural or Artificial Opening Endoscopic, Diagnostic (ICD-10-PCS; 2020-07-08)
PROC: 0DB68ZX Excision of Stomach, Via Natural or Artificial Opening Endoscopic, Diagnostic (ICD-10-PCS; 2020-07-08)
PROC: 0FBG3ZX Excision of Pancreas, Percutaneous Approach, Diagnostic (ICD-10-PCS; 2020-07-08)
PROC: 0F778DZ Dilation of Common Hepatic Duct with Intraluminal Device, Via Natural or Artificial Opening Endoscopic (ICD-10-PCS; 2020-07-08)
PROC: 4B02XSZ Measurement of Cardiac Pacemaker, External Approach (ICD-10-PCS; principal; 2020-07-08 13:30)
DX: C25.9 Malignant neoplasm of pancreas, unspecified (principal); K83.1 Obstruction of bile duct; E43 Unspecified severe protein-calorie malnutrition; I48.20 Chronic atrial fibrillation, unspecified; D68.69 Other thrombophilia; J96.10 Chronic respiratory failure, unspecified whether with hypoxia or hypercapnia; Q39.6 Congenital diverticulum of esophagus; Z20.822 Contact with and (suspected) exposure to COVID-19; S00.81XA Abrasion of other part of head, initial encounter; G90.8 Other disorders of autonomic nervous system; E87.6 Hypokalemia; D63.8 Anemia in other chronic diseases classified elsewhere; K63.5 Polyp of colon; K82.8 Other specified diseases of gallbladder; R62.7 Adult failure to thrive; D50.0 Iron deficiency anemia secondary to blood loss (chronic); E03.9 Hypothyroidism, unspecified; E78.5 Hyperlipidemia, unspecified; F17.200 Nicotine dependence, unspecified, uncomplicated; F43.10 Post-traumatic stress disorder, unspecified; I11.0 Hypertensive heart disease with heart failure; I25.2 Old myocardial infarction; I50.9 Heart failure, unspecified; K22.2 Esophageal obstruction; K64.4 Residual hemorrhoidal skin tags; K64.8 Other hemorrhoids; K86.9 Disease of pancreas, unspecified; M06.9 Rheumatoid arthritis, unspecified; M10.9 Gout, unspecified; M18.10 Unilateral primary osteoarthritis of first carpometacarpal joint, unspecified hand; M79.5 Residual foreign body in soft tissue; S16.1XXA Strain of muscle, fascia and tendon at neck level, initial encounter; W01.0XXA Fall on same level from slipping, tripping and stumbling without subsequent striking against object, initial encounter; Y93.89 Activity, other specified; Y92.098 Other place in other non-institutional residence as the place of occurrence of the external cause; Z79.01 Long term (current) use of anticoagulants; Z87.11 Personal history of peptic ulcer disease; Z88.0 Allergy status to penicillin; Z98.1 Arthrodesis status; E07.9 Disorder of thyroid, unspecified; Z87.01 Personal history of pneumonia (recurrent); K21.9 Gastro-esophageal reflux disease without esophagitis; R97.0 Elevated carcinoembryonic antigen [CEA]; Z95.0 Presence of cardiac pacemaker; Z79.899 Other long term (current) drug therapy; Z79.891 Long term (current) use of opiate analgesic; Z68.20 Body mass index [BMI] 20.0-20.9, adult
CPT/HCPCS: 36415; 70450; 71045; 72125; 74177; 74240; 74328; 76700; 78227; 78452; 80048; 80053; 80162; 81001; 82105; 82378; 82728; 82977; 83540; 83550; 83690; 83735; 84439; 84443; 84484; 85014; 85018; 85025; 85610; 86301; 88173; 88305; 88307; 93005; 93306; 96365; G0378; J0696; J2405; J2704; J2785; J3010; J3411; J3475; J3480; Q9967; A9502; A9537; C1769; C1894; C2625; J0330; J7040; U0003